=== PATIENT | female | born 2000 ===

== ENCOUNTER 2020-01-13 19:54 | Emergency (ER) | payer MEDICAID ==
[~2020-01-13] VITALS: Ht 157.5 cm; Wt 67.3 kg
[~2020-01-13 19:54] MED LIST: COLACE100 MG PO; MOTRIN800 MG PO; NORCO1 TA2 PO
[2020-01-13 20:10] VITALS: Ht 157.5 cm; Wt 67.3 kg
[2020-01-13 22:40] VITALS: BP 27/81
== END 2020-01-13 22:40 | disposition home or self-care (01) ==
LOC: ED 19:54
DX: N34.2 Other urethritis (principal); N93.9 Abnormal uterine and vaginal bleeding, unspecified
CPT/HCPCS: 87491; 87591; J0696

== ENCOUNTER 2020-06-14 18:58 | Emergency (ER) | payer MEDICAID ==
[~2020-06-14] VITALS: Ht 160 cm; Wt 64.9 kg
[2020-06-14 19:28] VITALS: Ht 160 cm; Wt 64.9 kg
[2020-06-14 22:42] LABS: BASOPHIL % 0.3 % (0-2); PLATELET COUNT 296 x10^3mcL (130-400); RED CELL DISTRIBUTION WIDTH 13.3 % (11.5-14.5)
[2020-06-15 00:37] VITALS: BP 129/77
== END 2020-06-15 00:37 | disposition home or self-care (01) ==
LOC: ED 18:58
PROVIDERS: Emergency Medicine
DX: O20.0 Threatened abortion (principal); Z3A.01 Less than 8 weeks gestation of pregnancy